=== PATIENT | male | born 1990 | race Two or more races ===

== ENCOUNTER → 2021-06-08 | Outpatient (REF) ==
--- NOTE | 2021-06-08 13:05 | REP ---
INDICATION: PAIN. COMPARISON: None. TECHNIQUE: Four views the right hand were obtained. FINDINGS: There is no evidence of fracture, subluxation or dislocation. There are no joint space abnormalities. There are no soft tissue abnormalities. IMPRESSION: Normal right hand. <Electronically signed by Alec Cruz > 06/08/21 [id number]
== END ==
LOC: M PLAIMG 11:19
PROVIDERS: ATTEND Internal Medicine
DX: R52 Pain, unspecified (principal)